=== PATIENT | female | born 1960 | race Caucasian/White ===

== ENCOUNTER 2016-06-30 07:25 | Emergency (ER) | payer OTHER ==
[~2016-06-30] VITALS: Wt 117.0 kg
[2016-06-30 07:40] VITALS: BP 134/69; PULSE 74; RESP 10; TEMP 98.4
--- NOTE | 2016-06-30 08:36 | RADRPT ---
PROCEDURE: US Pelvis. CLINICAL INDICATION: Pelvic pain TECHNIQUE: Multiple sonographic images of the pelvis were obtained utilizing a transabdominal and endovaginal technique. The images were reviewed on a PACS workstation. COMPARISON: None. FINDINGS: The uterus is visualized and measures 6.1 x 3.8 x 4.5 cm. The endometrial echo complex measures 8 mm thickness. No uterine masses are identified. The right ovary is not well visualized. The left ovary measures 2.4 x 1.4 x 1.2 cm. [address] is identified on the left ovary. The left ovary demonstrates normal vascularity. No adnexal masses or pelvic free fluid are noted. IMPRESSION: Thickened endometrium for a postmenopausal woman. Correlation for post menopausal bleeding is recom mended. Close continued follow-up to assess for persistence of this finding should be considered. Consultation with gynecology and potential correlation with endometrial biopsy can also be considere d. 7 mm simple cyst on the left ovary. Finding is abnormal in a postmenopausal woman. Continued follo w-up with repeat exam in 8 weeks to assess for persistence of this finding is recommended. Right ovary not well visualized. If characterization of this structure is needed repeat exam or CT/M RI is recommended. If further characterization of the organs of the pelvis is needed MRI should be considered. RPTAT: AA .Jacobo So MD, Date Time Electronically viewed and signed by .Jacobo So MD, MD on 06/30/2016 08:35 .P/
[2016-06-30 08:40] LABS: ADD UMIC YES; URINE BILIRUBIN (Dip) NEGATIVE (NEGATIVE); URINE BLOOD (Dip) 3+ (NEGATIVE); URINE COLOR LT. YELLOW (YELLOW); URINE GLUCOSE (Dip) >=1000 % (NEGATIVE); URINE KETONES (Dip) 40 (NEGATIVE); URINE LEUKOCYTE ESTERASE (Dip) NEGATIVE (NEGATIVE); URINE NITRITE (Dip) POSITIVE (NEGATIVE); URINE TOTAL PROTEIN (Dip) 2+ (NEGATIVE); URINE UROBILINOGEN (Dip) 0.2 E.U./dL (0.1-1.0)
[2016-06-30] MEDS ORDERED: CIPR500T4 PO (08:53)
[2016-06-30 08:56] LABS: BACTERIA,URINE MANY; SQUAMOUS EPITHELIAL CELL,UR FEW; URINE RBCS >50 /HPF (0)
--- NOTE | 2016-06-30 08:58 | ERD ---
ER Documentation Chief Complaint Date/Time DATE: 06/30/16 TIME: 0736 Chief Complaint right lower abd pain with scant vag bleed yesterday. no dysuria. nausea now HPI 55-year-old female presents to the emergency department complaining of right lower abdominal pain radiating from her right flank. Patient states she was in her usual state of health until yesterday which time she began having the spontaneous onset of this discomfort. It was associated with no dysuria fevers or chills. She had scant vaginal bleeding associated with this that she described as brown with no passage of clots or tissue. Patient reported no diarrhea nausea vomiting or anorexia. She reported that the discomfort was approximately 8/10 at its worst. However, she took some medication prior to arrival and states she needs no further pain medicine. ROS All systems reviewed and are negative except as per history of present illness. Medications Home Meds Active Scripts Ciprofloxacin Hcl* (Ciprofloxacin Hcl*) 500 Mg Tablet, 500 MG PO BID for 5 Days , TAB Prov:CLARK KEYS 06/30/16 PMhx/Soc History of Surgery: Yes (Gallbladder) Hx Alcohol Use: No Hx Substance Use: No Hx Tobacco Use: No Smoking Status: Never smoker FmHx Noncontributory for chief complaint Physical Exam Vitals Vital Signs Date Time Temp Pulse Resp B/P Pulse Ox O2 Delivery O2 Flow Rate FiO2 06/30/16 07:40 98.4 74 10 134/69 100 Room Air 06/30/16 07:28 98.6 74 20 142/81 98 Physical Exam GENERAL: The patient is well developed and appropriate for usual state of health in no apparent distress HEENT: Pupils equal, round, and reactive to light. EOMI. There is no scleral icterus. NECK: C-spine is soft and supple, there is no meningismus. There is no cervical lymphadenopathy. LUNGS: Clear to auscultation bilaterally. There are no rales, wheezes or rhonchi. HEART: Regular rate and rhythm, no murmurs, clicks, rubs or gallops. ABDOMEN: Soft, non-tender, non-distended. There are bowel sounds in all four quadrants. No rebound or guarding. No CVA tenderness EXTREMITIES: There is no peripheral cyanosis or edema. No focal swelling or erythema. NEURO: The patient moves all four extremities with 5/5 strength. Cranial nerves II - XII are intact. Normal gait. Alert and oriented SKIN: There is no apparent rash or petechiae. HEME/LYMPHATIC: There is no evidence of excessive bruising or lymphedema. PSYCHIATRIC: The patient does not appear anxious or depressed. Results 24 hrs Laboratory Tests Test 06/30/16 07:50 Urine Bilirubin NEGATIVE Urine Clarity CLEAR Urine Color LT. YELLOW Urine Glucose >=1000% Urine Hemoglobin 3+ Urine Ketones 40 Urine Leukocyte Esterase NEGATIVE Urine Microscopic RBC Pending Urine Microscopic WBC Pending Urine Nitrite POSITIVE Urine Specific Velarde 1.015 Urine Total Protein 2+ Urine Urobilinogen 0.2 E.U./dL Urine pH 5.0 Procedures/MDM Patient was taken to a room, seen and evaluated. Comfort measures were initiated. Diagnostic tests were ordered and reviewed. RADIOLOGY: reviewed with the radiologist REEVALUATION: Remained comfortable in the emergency department MEDICAL DECISION MAKIN-year-old postmenopausal female presents with pelvic and right lower quadrant pain associated with vaginal bleeding. Differential diagnosis entertained was broad and potential high acuity including gynecologic , GI and concerns. Patient does have a urinary tract infection but no signs of pyelonephritis or sepsis. I will treat her with an antibiotic. More concerning however is the vaginal bleeding at her age. Her ultrasound is abnormal with a small cyst on the left ovary but no signs of torsion. Patient also has a thickened endometrium which is abnormal as well. Patient clearly requires gynecologic follow-up for both the ovarian cyst as well as endometrial findings in this age group and she is been educated about this and states that she has an appointment this week with her matcher operator. Overall, she is clinically well and appropriate for outpatient care. Departure Diagnosis: Primary Impression: UTI (urinary tract infection) Additional Impressions: Vaginal bleeding problems Abnormal vaginal bleeding Condition: Stable Patient Instructions: Understanding Urinary Tract Infections (UTIs), Dysfunctional Uterine Bleeding Additional Instructions: Please see your matcher operator with a copy of your results this week. You may need further tests with your matcher operator. return for an fever or worsening pain CLARK KEYS Jun 30, 2016 08:58
== END 2016-06-30 09:18 | disposition home or self-care (01) ==
LOC: FTE 07:25
DX: N39.0 Urinary tract infection, site not specified (principal); N93.9 Abnormal uterine and vaginal bleeding, unspecified; R40.2142 Coma scale, eyes open, spontaneous, at arrival to emergency department; R40.2362 Coma scale, best motor response, obeys commands, at arrival to emergency department; R40.2252 Coma scale, best verbal response, oriented, at arrival to emergency department
CPT/HCPCS: 76830; 76856; 81001; Z7502; 81003

== ENCOUNTER 2016-11-26 16:09 | Emergency (ER) | payer OTHER ==
[~2016-11-26] VITALS: Ht 170.2 cm; Wt 120.0 kg
[~2016-11-26 16:09] MED LIST: CIPR500T4 PO
[2016-11-26 16:21] VITALS: Ht 170.2 cm; Wt 120.0 kg
--- NOTE | 2016-11-26 17:27 | RADRPT ---
PROCEDURE: Ultrasound of the right lower extremity venous system. CLINICAL INDICATION: Right lower extremity pain and swelling. TECHNIQUE: Mccord scale with and without compression, color doppler, spectral doppler of the venous system of the right lower extremity was performed. Venous augmentation maneuvers were utilized. COMPARISON: No prior studies are available for comparison. FINDINGS: RIGHT: Common femoral vein:Patent and compressible. Femoral vein:Patent and compressible. Popliteal vein:Patent and compressible. Visualized calf veins:Patent and compressible. Soft tissues:Normal IMPRESSION: 1. No evidence of deep vein thrombosis. RPTAT: AACC Physician Adriane Date Time Electronically viewed and signed by Physician Adriane on 11/26/2016 17:26 /
--- NOTE | 2016-11-26 18:51 | RADRPT ---
PROCEDURE: US Lower extremity arterial. CLINICAL INDICATION: Diminish peripheral pulses. Lower extremity discoloration. TECHNIQUE: Multiple sonographic images of the bilateral lower extremity arteries was obtained utili zing grayscale, color-flow, and doppler imaging. The images were reviewed on a PACS workstation. COMPARISON: None. FINDINGS: RIGHT LEG: Common femoral artery: 132 cm/s; triphasic waveforms Proximal superficial femoral artery: 96 cm/s; triphasic waveforms Mid superficial femoral artery: 109 cm/s; triphasic waveforms Distal superficial femoral artery: 79 cm/s; triphasic waveforms Popliteal artery: 112 cm/s; triphasic waveforms Posterior tibial artery: 138 cm/s; triphasic waveforms Dorsalis pedis artery: 35 cm/s; monophasic waveforms LEFT LEG: Common femoral artery: 99 cm/s; triphasic waveforms Proximal superficial femoral artery: 89 cm/s; triphasic waveforms Mid superficial femoral artery: 91 cm/s; triphasic waveforms Distal superficial femoral artery: 66 cm/s; triphasic waveforms Popliteal artery: 52 cm/s; triphasic waveforms Posterior tibial artery: 74 cm/s; triphasic waveforms Dorsalis pedis artery: 87 cm/s; triphasic waveforms Right CELSA: 1.2 Left CELSA: 1.16 IMPRESSION: 1. Abnormal dampened wave form in the right DPA, which may be related to intrinsic disease given ot herwise normal flow in the right lower extremity. 2. No evidence of hemodynamically significant stenosis. RPTAT: HLBP CELSA Value Interpretation Recommendation >1.4 Calcification/Vessel Hardening Refer to a Vascular Specialist 1.0-1.4 Normal None 0.9-1.0 Acceptable None 0.8-0.9 Some Arterial Disease Treat Risk Factors 0.5-0.8 Moderate Arterial Disease Refer to a Vascular Specialist Stenosis category Peak systolic velocity (cm/s) Velocity ratio Distal artery spectral waveform <20% <150 <1.5 Triphasic, normal PSV 20% to 49% 150-200 1.5-2.0 Triphasic, normal PSV 50% to 75% 200-300 2.0-4.0 Monophasic, reduced PSV >75% >300, EDV >40 >4.0 Damped monophasic, reduced PSV Occlusion No flow Damped monophasic, reduced PSV Interpretation of arterial duplex testing of lower-extremity arteries and interventions. Seminars in Vascular Surgery. 2013;26(2-3):95-104. .Gianluca Black MD, MD Date Time Electronically viewed and signed by .Gianluca Black MD, MD on 11/26/2016 18:51 .P/
--- NOTE | 2016-11-26 19:49 | ERD ---
ER Documentation Chief Complaint Date/Time DATE: 11/26/16 TIME: 19:37 Chief Complaint right foot/knee swelling since yesterday HPI This is a 56-year-old female presenting to the emergency department complaining of right lower leg extremity from her knee to her foot since a few months prior to being seen. Patient states that 10 days prior to being seen she had a full workup including an ultrasound which was unremarkable. Patient states that her [facility] clinic has placed her on Lasix. Patient denies any chest pain, shortness of breath, cough. Patient denies any pain she states that she has circulatory and neuropathy problems. Admits to recent traveling months ago. ROS All systems reviewed and are negative except as per history of present illness. Medications Home Meds Active Scripts Ciprofloxacin Hcl* (Ciprofloxacin Hcl*) 500 Mg Tablet, 500 MG PO BID for 5 Days , TAB Prov:CLARK KEYS 06/30/16 Allergies Allergies: Coded Allergies: No Known Allergy (Unverified , 06/30/16) PMhx/Soc History of Surgery: Yes (Gallbladder) Hx Alcohol Use: No Hx Substance Use: No Hx Tobacco Use: No Smoking Status: Never smoker Physical Exam Vitals Vital Signs Date Time Temp Pulse Resp B/P Pulse Ox O2 Delivery O2 Flow Rate FiO2 11/26/16 16:21 98.1 77 18 136/63 96 Physical Exam General: WD/WN, in no apparent distress, non-toxic appearing HENT: NC/AT Eyes: Conjunctiva normal Neck: Supple Pulm: Clear to auscultation, normal labored breathing; no wheezing/rales/ rhonchi heard CV: Good capillary refill GI: Non-distended, no guarding Back: No masses Ext: +2 pitting edema in the right lower extremity, weekend pedal pulses Neuro: Moves on all fours Skin: intact Psych: Normal mood Procedures/MDM This is a 56-year-old female presenting to the emergency department with right lower leg extremity swelling due to peripheral artery disease versus other. There was no evidence of deep vein thrombosis on venous ultrasound. Low suspicion for CHF. Arterial ultrasound was done in the ED. 10 days ago, patient had full workup which radiologist state: 1. Abnormal dampened wave form in the right DPA, which may be related to intrinsic disease given otherwise normal flow in the right lower extremity. 2. No evidence of hemodynamically significant stenosis. I have discussed with patient that she will need to see a vascular specialist. I discussed with her to follow-up with her primary care physician and get a referral to see a vascular specialist. Discussed return to the ER for any worsening sinus symptoms patient understands and agrees with plan Departure Diagnosis: Primary Impression: Right leg swelling Condition: Fair Patient Instructions: Diabetes and Peripheral Arterial Disease (PAD), Smoking Cessation Additional Instructions: FOLLOW UP WITH YOUR PRIMARY CARE PHYSICIAN TOMORROW.Return to this facility if you are not improving as expected. Return to this facility if you are not improving as expected. LIZZ GONZÁLES PA-C Nov 26, 2016 19:49
== END 2016-11-26 19:42 | disposition home or self-care (01) ==
LOC: FTE 16:09
DX: M79.89 Other specified soft tissue disorders (principal)
CPT/HCPCS: 93922; 93971; Z7502

== ENCOUNTER 2018-02-07 09:46 | Emergency (ER) | END 2018-02-07 10:21 | disposition home or self-care (01) ==

== ENCOUNTER 2018-03-01 10:44 | Inpatient (IN) | END 2018-03-05 18:00 | disposition home or self-care (01) | DRG 243 ==

== ENCOUNTER 2018-08-04 18:26 | Inpatient (IN) | payer OTHER ==
[~2018-08-04] VITALS: Ht 167.6 cm; Wt 119.0 kg
[~2018-08-04 18:26] MED LIST changes: +ASPI-903 PO; +ATOR40TA68 PO; +BENA20TA4 PO; +CARV12.579 PO; -CIPR500T4 PO; +FURO20TA3 PO; +Insulin Glargine SC; +LANT3I SC; +MECL-77 PO; +MTF1000T PO; +NOVO3I SC; +OMEP20CA16 PO
--- NOTE | 2018-08-04 22:22 | ERD ---
ER Documentation Chief Complaint Chief Complaint bleeding/ pus drainage at wound site left leg HPI The patient is a 58-year-old female, presenting to the ER because of foul smell, purulent discharge from the left leg wound for the last 4 days, was seen at [facility] 4 days ago and treated with Keflex and Bactrim without response, it is getting worse. Has fever, chills, neck pain, chest pain, dyspnea, abdominal pain, vomiting, dizzy, diarrhea. She does not smoke nor drink Past medical history: CAD, hypertension, diabetes mellitus, dyslipidemia, history of left pleural effusion Past surgical history: Pacemaker, CABG in May 02, 2018 ROS All systems reviewed and are negative except as per history of present illness. Medications Home Meds Reported Medications Insulin Glargine,Hum.rec.anlog (Basaglar Kwikpen U-100) 100 Unit/1 Ml Insuln.pen, 30 UNIT SC BID, EA 08/05/18 Furosemide* (Furosemide*) 40 Mg/5 Ml Solution, 40 MG PO DAILY, #150 ML 08/05/18 Atorvastatin* (Atorvastatin*) 80 Mg Tablet, 80 MG PO QHS, #30 TAB 08/05/18 Aspirin* (Aspirin* Chew) 81 Mg Tab.chew, 81 MG PO DAILY, TAB.CHEW 03/01/18 Discontinued Reported Medications Sulfamethoxazole/Trimethoprim* (Bactrim Ds* Tablet) 1 Each Tablet, 1 TAB PO DAILY, TAB 08/05/18 Cephalexin* (Cephalexin*) 500 Mg Capsule, 500 MG PO Q6, #28 CAP 08/05/18 Omeprazole* (Omeprazole*) 20 Mg Capsule.dr, 20 MG PO AC BREAKFAST, #30 CAP 03/01/18 Furosemide* (Furosemide*) 20 Mg Tablet, 20 MG PO DAILY, #60 TAB 03/01/18 Benazepril Hcl* (Benazepril Hcl*) 20 Mg Tablet, 20 MG PO DAILY, #30 TAB 03/01/18 Metformin* (Glucophage*) 1,000 Mg Tablet, 1000 MG PO BID, #60 TAB 03/01/18 Discontinued Scripts Meclizine Hcl* (Meclizine Hcl*) 25 Mg Tablet, 25 MG PO Q8H PRN for DIZZINESS, #21 TAB Prov:RIOS HEATH 03/05/18 Insulin Glargine* (Lantus*) 100 Unit/Ml Soln, 26 UNIT SC DAILY, #8 VIAL 1 Refill Prov:RIOS HEATH 03/05/18 [Insulin Glargine] 100 UNITS/ML SOLN No Conflict Check, 26 UNITS SC DAILY@0800, #8 VIAL 1 Refill Prov:RIOS HEATH 03/05/18 Insulin Aspart* (Novolog Insulin Pen*) 100 Unit/Ml Soln, 12 UNIT SC WITH MEALS for 30 Days, #11 VIAL 1 Refill Prov:RIOS HEATH. 03/05/18 Carvedilol* (Carvedilol*) 12.5 Mg Tablet, 12.5 MG PO BID, #60 TAB 2 Refills Prov:RIOS HEATH 03/05/18 Atorvastatin* (Atorvastatin*) 40 Mg Tablet, 40 MG PO HS, #30 TAB 2 Refills Prov:RIOS HEATH. 03/05/18 Allergies Allergies: Coded Allergies: No Known Allergy (Unverified , 08/05/18) PMhx/Soc History of Surgery: No Anesthesia Reaction: No Hx Neurological Disorder: No Hx Respiratory Disorders: No Hx Cardiac Disorders: No Hx Psychiatric Problems: No Hx Miscellaneous Medical Probl: Yes (OBESITY) Hx Alcohol Use: Yes (ONCE a while ) Hx Substance Use: No Hx Tobacco Use: Yes (5-7 a day ) Physical Exam Vitals Vital Signs Date Temp Pulse Resp B/P (MAP) Pulse Ox O2 O2 Flow FiO2 Time Delivery Rate 08/05/18 97.8 80 23 146/80 96 Room Air 05:51 (102) 08/05/18 92 26 123/80 96 Nasal 02:00 (94) Cannula 08/05/18 83 22 105/54 91 Nasal 2.0 01:00 (71) Cannula 08/04/18 75 18 95 21 23:30 08/04/18 78 19 108/56 95 Room Air 22:00 (73) 08/04/18 74 15 108/60 94 Room Air 21:58 (76) 08/04/18 98.4 74 19 129/63 91 18:46 (85) Physical Exam Const: No acute distress. Head: Atraumatic. Eyes: Normal Conjunctiva. ENT: Normal External Ears, Nose and Mouth. Neck: Full range of motion. No meningismus. Resp: decreased breath sound at left lung base, mild bilateral expiratory wheezes Cardio: Regular rate and rhythm. Abd: Soft, non distended, normal bowel sounds, non tender. Skin: No petechiae or rashes. Back: No midline or flank tenderness. Ext: Left Leg with open wound with purulent and foul-smelling discharge, mild calf tenderness Neur: Awake and alert. No focal deficit Psych: Normal Mood and Affect. Result Diagram: 08/04/18225808/04/182258 Results 24 hrs Laboratory Tests Test 08/04/18 22:59 08/04/18 23:03 08/05/18 03:37 White Blood Count 8.2 10^3/ul Red Blood Count 4.29 10^6/ul Hemoglobin 11.0 g/dl Hematocrit 35.9 % Mean Corpuscular Volume 83.7 fl Mean Corpuscular Hemoglobin 25.6 pg Mean Corpuscular 30.6 g/dl Hemoglobin Concent Red Cell Distribution Width 14.6 % Platelet Count 254 10^3/UL Mean Platelet Volume 9.9 fl Immature Granulocytes % 0.200 % Neutrophils % 69.8 % Lymphocytes % 20.2 % Monocytes % 7.0 % Eosinophils % 2.2 % Basophils % 0.6 % Nucleated Red Blood Cells % 0.0 /100WBC Immature Granulocytes # 0.020 10^3/ul Neutrophils # 5.7 10^3/ul Lymphocytes # 1.7 10^3/ul Monocytes # 0.6 10^3/ul Eosinophils # 0.2 10^3/ul Basophils # 0.1 10^3/ul Nucleated Red Blood Cells # 0.0 10^3/ul Prothrombin Time 13.2 Sec Prothrombin Time Ratio 1.0 INR International Normalized Ratio 0.99 Activated Partial Thromboplast 32.3 Sec Time Sodium Level 142 mmol/L Potassium Level 4.5 mmol/L Chloride Level 99 mmol/L Carbon Dioxide Level 31 mmol/L Anion Gap 12 Blood Urea Nitrogen 23 mg/dl Creatinine 0.81 mg/dl Est Glomerular Filtrat Rate mL/min > 60 mL/min Glucose Level 196 mg/dl Calcium Level 9.4 mg/dl Total Bilirubin 0.2 mg/dl Direct Bilirubin 0.00 mg/dl Indirect Bilirubin 0.2 mg/dl Aspartate Amino Transf (AST/SGOT) 24 IU/L Alanine 30 IU/L Aminotransferase (ALT/SGPT) Alkaline Phosphatase 111 IU/L Troponin I < 0.012 ng/ml Total Protein 7.6 g/dl Albumin 4.1 g/dl Globulin 3.50 g/dl Albumin/Globulin Ratio 1.17 POC Venous Lactate 0.9 mmol/L Lactic Acid Level 0.9 mmol/L Current Medications Medications Dose Sig/Shelley Start Time Status Last (Trade) Ordered Route PRN Stop Time Admin Dose Reason Admin Vancomycin 250 ml @ ONCE ONCE 08/04/18 DC 08/05/18 HCl 125 mls/hr IVPB 23:30 01:47 08/05/18 01:29 Piperacillin 100 ml @ ONCE ONCE 08/04/18 DC 08/05/18 Sod/ 200 mls/hr IVPB 23:30 00:40 Tazobactam 08/04/18 23:59 Sod 1.25 mg ONCE ONCE 08/04/18 DC 08/04/18 Levalbuterol HHN 23:30 23:30 (Xopenex 08/04/18 23:31 Neb) Ipratropium 0.5 mg ONCE ONCE 08/04/18 DC 08/04/18 [place] HHN 23:30 23:30 (Atrovent 08/04/18 23:31 0.02% (Neb)) IV Flush 3 ml PER 08/05/18 (NS 3 ml) PROTOCOL IV 03:00 Ondansetron 4 mg Q6H PRN 08/05/18 HCl (Zofran PO 03:00 Tab) NAUSEA/VOMITI NG 650 mg Q6H PRN 08/05/18 Acetaminophen PO .PAIN 1-3 03:00 (Tylenol OR TEMP Tab) 1 tab Q6H PRN 08/05/18 Acetaminophen PO .MOD PAIN 03:00 / 4-6 Hydrocodone Bitart ([place] (5/325)) Docusate 100 mg Q12H PRN 08/05/18 Sodium PO 03:00 (Colace) .CONSTIPATION Magnesium 30 ml DAILY PRN 08/05/18 Hydroxide PO 03:00 (Milk Of Mag) .CONSTIPATION Bisacodyl 5 mg DAILY PRN 08/05/18 (Dulcolax) PO 03:00 .CONSTIPATION Zolpidem 5 mg QHS PRN 08/05/18 Tartrate PO .INSOMNIA 03:00 (Ambien) Famotidine 20 mg Q12 PO 08/05/18 (Pepcid) 09:00 Enoxaparin 40 mg DAILY SC 08/05/18 Sodium 09:00 (Lovenox) Vancomycin VANCOMYCIN PER 08/05/18 HCl (Vanco PER PHARMACY PROTOCOL XX 03:00 Iv Per Pharmacy) Piperacillin 100 ml @ ONCE ONCE 08/05/18 DC 08/05/18 Sod/ 200 mls/hr IVPB 03:00 04:19 Tazobactam 08/05/18 03:29 Sod Aspirin 81 mg DAILY PO 08/05/18 (Aspirin) 09:00 80 mg QHS PO 08/05/18 Atorvastatin 21:00 Calcium (Lipitor) Furosemide 40 mg DAILY PO 08/05/18 DC (Lasix Liq 09:00 (Nicu)) 08/05/18 09:00 Insulin 30 unit BID SC 08/05/18 Cancel Glargine 09:00 (Lantus) Furosemide 40 mg DAILY@0600 08/05/18 (Lasix) PO 06:00 Vancomycin 250 ml @ Q12H IVPB 08/05/18 HCl 1.5 83.333 mls/ 10:00 gm/Sodium hr Chloride Insulin 30 units BID SC 08/05/18 Glargine 09:00 (Lantus) 1 ea NOTE XX 08/05/18 Miscellaneous 03:30 Information Glucose 15 gm Q15M PRN 08/05/18 (Glutose) PO DECREASED 03:30 GLUCOSE Glucose 22.5 gm Q15M PRN 08/05/18 (Glutose) PO DECREASED 03:30 GLUCOSE Dextrose 25 ml Q15M PRN 08/05/18 (D50w IV DECREASED 03:30 Syringe) GLUCOSE Dextrose 50 ml Q15M PRN 08/05/18 (D50w IV DECREASED 03:30 Syringe) GLUCOSE Glucagon 1 mg Q15M PRN 08/05/18 (Glucagen) IM DECREASED 03:30 GLUCOSE Glucose 15 gm Q15M PRN 08/05/18 (Glutose) BUCCAL 03:30 DECREASED GLUCOSE Nicotine 1 patch ONCE ONCE 08/05/18 DC (Nicoderm 14 TRANSDERM 04:00 Mg/ 24hr) 08/05/18 04:01 Procedures/[place] [id number] Radiology Main Line: [phone] DIAGNOSTIC IMAGING REPORT Patient: KYLEIGH SWIFT : 1960 Age: 58 Sex: F MR #: [id number] DOS: 08/04/182309 Ordering MD: KARSON VALENTIN MD Location: E/R Room/Bed: PROCEDURE: XR Chest. CLINICAL INDICATION: Sepsis. TECHNIQUE: AP view of the chest was obtained. COMPARISON: 03/04/2018 FINDINGS: There is a dual lead left-sided pacemaker in place with leads in the region of the right atrium right ventricle. There are postoperative changes from prior sternotomy. There is interval development of a large left-sided pleural effusion occupying 50% of the left hemithorax. There is associated compressive atelectasis. The right lung is normally aerated. The osseous structures and soft tissues unremarkable. No signs of pneumothorax is seen. IMPRESSION: 1. Moderate left-sided pleural effusion occupying 50% of the left hemithorax. 2. Pacemaker in place. RPTAT: HGAS .Davey Jay MD, MD Date Time Electronically viewed and signed by .Davey Jay MD, MD on 08/05/2018 00:45 .S/ CC: KARSON VALENTIN MD [phone] [place] [id number] Radiology Main Line: [phone] DIAGNOSTIC IMAGING REPORT Patient: KYLEIGH SWIFT : 1960 Age: 58 Sex: F MR #: [id number] DOS: 08/04/182309 Ordering MD: KARSON VALENTIN MD Location: E/R Room/Bed: PROCEDURE: Left Lower extremity Doppler US. CLINICAL INDICATION: Left lower extremity swelling. TECHNIQUE: Multiple sonographic images of the left lower extremity were obtained with and without Doppler interrogation. The images were reviewed on a PACS workstation. COMPARISON: No prior studies are available for comparison. FINDINGS: The examination was limited due to patient body habitus and edema in the lower extremity. The distal common femoral, superficial femoral and visualized portions of the popliteal vein are normal in appearance with normal response to augmentation. No evidence of DVT. The left posterior tibial veins or not well identified. No evidence of thrombus. There is moderate soft tissue swelling in the left lower extremity. There is no evidence of Luna's cyst. IMPRESSION: 1. Limited evaluation due to patient body habitus and left lower extremity edema. 2. Otherwise, normal left lower extremity Doppler ultrasound. No evidence of DVT. RPTAT: HGAS .Davey Jay MD, MD Date Time Electronically viewed and signed by .Davey Jay MD, MD on 08/05/2018 00:53 .S/ CC: KARSON VALENTIN MD [phone] EKG: Read by emergency physician Rate/Rhythm: Normal Sinus Rhythm 75 beats/min QRS, ST, T-waves: No ST elevation, no T inversion pvc, lae, inferior q's Impression: abnormal EKG MEDICAL MAKING DECISION: The patient is a 58-year-old female, presenting with acute left leg cellulitis, acute recurrent left pleural effusion, was treated with vancomycin and Zosyn IV for cellulitis, Xopenex and Atrovent for wheezing with good response. The differential diagnoses considered include but are not limited to cellulitis, abscess, DVT, pneumonia, empyema, malignancy Departure Diagnosis: Primary Impression: Cellulitis Additional Impressions: Pleural effusion, left Anemia Condition: Stable Comments I discussed the findings with the patient. I discussed the patient with dr leon at 2:55a , who was made aware of the lab, the treatment, the patient condition. The patient is admitted to tel Disclaimer: Inadvertent spelling and grammatical errors are likely due to EHR/dictation software use and do not reflect on the overall quality of patient care. Also, please note that the electronic time recorded on this note does not necessarily reflect the actual time of the patient encounter. KARSON VALENTIN MD Aug 04, 2018 22:22
[2018-08-04] MEDS ORDERED: PIPER-TAZO 3.375 GM IV (PMX) 100 ML IVPB ONE (23:30)
[2018-08-04] MEDS ORDERED: IPRATROPIUM (NEB) 0.5 MG/2.5 ML AMP HHN ONE (23:30)
[2018-08-04] MEDS ORDERED: LEVALBUTEROL (NEB) 1.25 MG/0.5 ML AMP HHN ONE (23:30)
[2018-08-04] MEDS ORDERED: VANCOMYCIN 1 GM (PMX) 250 ML IVPB ONE (23:30)
[2018-08-05] VITALS (11 sets, daily range): BP systolic 97–145; BP diastolic 60–72; PULSE 58–83; RESP 16–22; Ht 167.6 cm; Wt 119.0 kg
[2018-08-05] MEDS ORDERED: CEPH500C PO (02:03)
[2018-08-05] MEDS ORDERED: FURO40SO PO ×2 (02:03→10:18)
[2018-08-05] MEDS ORDERED: ATOR-2 PO (02:03)
[2018-08-05] MEDS ORDERED: INSU100I33 SC (02:03)
[2018-08-05] MEDS ORDERED: SULF1TAB31 PO (02:04)
[2018-08-05] MEDS ORDERED: NACL 0.9% 3 ML SYG IV SCH (03:00)
[2018-08-05] MEDS ORDERED: ONDANSETRON 4 MG TAB PO PRN (03:00)
[2018-08-05] MEDS ORDERED: ZOLPIDEM 5 MG TAB PO PRN (03:00)
[2018-08-05] MEDS ORDERED: MAGNESIUM HYDROXIDE 30ML CUP PO PRN (03:00)
[2018-08-05] MEDS ORDERED: VANCOMYCIN IV PER PHARMACY XX SCH (03:00)
[2018-08-05] MEDS ORDERED: BISACODYL (EC) 5 MG TAB PO PRN (03:00)
[2018-08-05] MEDS ORDERED: PIPER-TAZO 3.375 GM IV (PMX) 100 ML IVPB ONE (03:00)
[2018-08-05] MEDS ORDERED: DOCUSATE SODIUM 100 MG CAP PO PRN (03:00)
[2018-08-05] MEDS ORDERED: ACETAMINOPHEN 325 MG TAB PO PRN (03:00)
[2018-08-05] MEDS ORDERED: HYDROCODONE/APAP (5/325) TAB PO PRN (03:00)
[2018-08-05] MEDS ORDERED: GLUCOSE GEL 15 GRAM TUBE BUCCAL PRN (03:30)
[2018-08-05] MEDS ORDERED: GLUCAGON 1 MG INJ IM PRN (03:30)
[2018-08-05] MEDS ORDERED: DEXTROSE 50% 50 ML SYRINGE IV PRN ×2 (03:30)
[2018-08-05] MEDS ORDERED: GLUCOSE GEL 15 GRAM TUBE PO PRN ×2 (03:30)
[2018-08-05] MEDS ORDERED: NICOTINE (14 MG/24 HR) PATCH TRANSDERM ONE (04:00)
[2018-08-05] MEDS ORDERED: FUROSEMIDE 40 MG TAB PO SCH (06:00)
[2018-08-05] MEDS ORDERED: NICOTINE (14 MG/24 HR) PATCH TRANSDERM SCH (09:00)
[2018-08-05] MEDS ORDERED: INSULIN GLARGINE [LANTus] (100 UNITS/ML) SYG SC SCH (09:00)
[2018-08-05] MEDS ORDERED: ASPIRIN 81 MG TAB PO SCH (09:00)
[2018-08-05] MEDS ORDERED: ENOXAPARIN 40 MG/0.4 ML SYG SC SCH (09:00)
[2018-08-05] MEDS ORDERED: FAMOTIDINE 20 MG TAB PO SCH (09:00)
[2018-08-05] MEDS ORDERED: INSULIN GLARGINE [LANtus] 3 ML PEN SC SCH (09:00)
[2018-08-05] MEDS ORDERED: FUROSEMIDE (8 MG/ML PO SYG) PO SCH (09:00)
[2018-08-05] MEDS ORDERED: VANCOMYCIN HCL 1.5 GM in SOD CHLORIDE 0.9% 250 ML IVPB SCH (10:00)
[2018-08-05] MEDS ORDERED: VANC1.5P12 IV (10:18)
--- NOTE | 2018-08-05 10:19 | PDOCDIS ---
Discharge Instructions CONDITION [id number] Patient Condition: [id number] Good HOME CARE INSTRUCTIONS: [id number] Diet Instructions: [id number] Activity Restrictions: [id number] No Restrictions FOLLOW UP/APPOINTMENTS Follow-up Plan pcp 1 week BLAINE NOLAND MD Aug 05, 2018 10:19
[2018-08-05] MEDS ORDERED: FURO40TA4 PO (10:21)
[2018-08-05] MEDS ORDERED: POTA20TA15 PO (10:23)
[2018-08-05] MEDS ORDERED: LIDOCAINE 1% (MPF) 5 ML VIAL SC ONE ×2 (10:30)
--- NOTE | 2018-08-05 11:55 | HP ---
DATE OF ADMISSION: 08/05/2018 CHIEF COMPLAINT: Left leg infection. HISTORY OF PRESENT ILLNESS: A 58-year-old moderately obese female status post CABG on 05/02/2018 in [place], presented to emergency room with complaint of left thigh infection with purulent discharge which was foul-smelling. The patient was seen at [facility] emergency room 4 days prior to admiss ion and prescribed Keflex and Bactrim. She denies any fevers or chills, nausea or vomiting. She den ies any chest pain. The patient noted that after she received oral antibiotics there was a purulent discharge from the wound. This is the site of the vein harvest during CABG on 05/02/2018. Initial e valuation revealed no leukocytosis. The patient was started on IV antibiotics. A chest x-ray showed moderate left-sided pleural effusion. PAST MEDICAL HISTORY: 1. Hypertension. 2. Coronary artery disease. 3. Hyperlipidemia. 4. Type 2 diabetes mellitus. 5. Moderate obesity. PAST SURGICAL HISTORY: Status post coronary artery bypass graft on 05/02/2018. MEDICATIONS PRIOR TO ADMISSION: 1. Lipitor 80 mg p.o. at bedtime. 2. Aspirin 81 mg p.o. daily. 3. Lasix 40 mg p.o. daily. 4. Glargine insulin 30 units b.i.d. SOCIAL HISTORY: The patient denies tobacco or alcohol use. PHYSICAL EXAMINATION: GENERAL: Well-developed, well-nourished female who is in no apparent distress. VITAL SIGNS: Stable. She is afebrile. HEENT: Extraocular muscles intact. Pupils equal and reactive to light bilaterally. Sclerae are ani cteric. Oropharynx is clear and moist. NECK: Supple, no JVD, no carotid bruits. LUNGS: Decreased breath sounds on the left side half-way up. CARDIAC: Regular rate and rhythm. No murmurs, rubs or gallops. ABDOMEN: Soft, obese, nontender, nondistended, normoactive bowel sounds. EXTREMITIES: Left medial thigh with wound surrounded by erythema and covered with dressing. There i s no lymphangitic streak. The patient has 3+ bilateral pedal edema. NEUROLOGIC: Nonfocal. LABORATORY DATA: Basic metabolic panel is normal. White blood cell count 8.2, hemoglobin 11, platelet count is 254,000. ASSESSMENT: A 58-year-old female with: 1. Left thigh cellulitis at the site of vein harvest. 2. Status post coronary artery bypass graft in [place] on 05/02/2018. 3. Hypertension. 4. Hyperlipidemia. 5. Type 2 diabetes mellitus. 6. Moderate obesity. PLAN: 1. Place in Med/Surg observation, continue IV antibiotics, place a PICC line. 2. Proceed with CT-guided thoracentesis. 3. Discharge planning with 10 days of IV vancomycin. Dictated By: BLAINE NOLAND MD SK/NTS Conf#: [id number] DID#: [id number] CC: COOPER PAVON MD;*EndCC*
[2018-08-05] MEDS ORDERED: ATORVASTATIN 80 MG TAB PO SCH (21:00)
== END 2018-08-05 18:45 | disposition home health service (06) | DRG 603 ==
LOC: E/R 18:26 → TEL 08-05 02:56
PROVIDERS: ADMIT Internal Medicine; ATTEND Internal Medicine
PROC: 05HY33Z Insertion of Infusion Device into Upper Vein, Percutaneous Approach (ICD-10-PCS; principal; 2018-08-05)
DX: L03.116 Cellulitis of left lower limb (principal); Z68.41 Body mass index [BMI] 40.0-44.9, adult; I25.10 Atherosclerotic heart disease of native coronary artery without angina pectoris; Z95.1 Presence of aortocoronary bypass graft; E78.5 Hyperlipidemia, unspecified; E11.9 Type 2 diabetes mellitus without complications; E66.9 Obesity, unspecified; Z95.0 Presence of cardiac pacemaker; Z79.82 Long term (current) use of aspirin; Z79.4 Long term (current) use of insulin
CPT/HCPCS: 36415; 36569; 71045; 76937; 76942; 80053; 82962; 83605; 84484; 85025; 85610; 85730; 87070; 87102; 87116; 88104; 88305; 93005; 93971; 94664; 96374; 96375; 96376; C1769; J1650; J1815; J2543; J3370; J7050

== ENCOUNTER 2018-08-27 19:31 | Inpatient (IN) | payer OTHER ==
[~2018-08-27] VITALS: Ht 167.6 cm; Wt 124.0 kg
[~2018-08-27 19:31] MED LIST changes: +ATOR-2 PO; -ATOR40TA68 PO; -BENA20TA4 PO; -CARV12.579 PO; -FURO20TA3 PO; +FURO40TA4 PO; +INSU100I33 SC; -Insulin Glargine SC; -LANT3I SC; -MECL-77 PO; -MTF1000T PO; -NOVO3I SC; -OMEP20CA16 PO; +POTA20TA15 PO; +VANC1.5P12 IV
--- NOTE | 2018-08-27 22:51 | ERD ---
ER Documentation Chief Complaint Chief Complaint SOB x1 day, no CP. hx of thoracentesis/CABG HPI 58-year-old female with a history of CAD status post CABG in April 2018 presenting with shortness of breath since yesterday. She states that she has had 4 recurrent left-sided pleural effusion that required drainage in the past. The last one was done about 3 weeks ago during her admission to the hospital for cellulitis. She had her surgery done in [place] and does not have a cardiothoracic surgeon to follow-up with. She has followed up with her rotary filter operator who ordered an echocardiogram that was done today. She is not anika re of the results. Otherwise she is denying any chest pain, fever, chills. She has worsening shortness of breath with exertion but also has symptoms at rest. She also complains of bilateral lower extremity edema that seems to be getting worse. She takes Lasix twice daily. Urination has not changed. ROS All systems reviewed and are negative except as per history of present illness. Medications Home Meds Active Scripts Potassium Chloride* (K-Dur*) 20 Meq Tab.prt.sr, 20 MEQ PO DAILY for 30 Days, TAB.SA Prov:BLAINE NOLAND MD 08/05/18 Furosemide* (Furosemide*) 40 Mg Tablet, 40 MG PO BID for 30 Days, #60 TAB Prov:BLAINE NOLAND MD 08/05/18 Vancomycin HCl in Dextrose 5 % (Vancomycin 1.5 Gram/250 ml-D5w) 1.5 Gm/250 Ml Plast..bag, 1.5 GM IV BID for 7 Days Prov:BLAINE NOLAND MD 08/05/18 Reported Medications Insulin Glargine,Hum.rec.anlog (Basaglar Kwikpen U-100) 100 Unit/1 Ml In suln.pen, 30 UNIT SC BID, EA 08/05/18 Atorvastatin* (Atorvastatin*) 80 Mg Tablet, 80 MG PO QHS, #30 TAB 08/05/18 Aspirin* (Aspirin* Chew) 81 Mg Tab.chew, 81 MG PO DAILY, TAB.CHEW 03/01/18 Allergies Allergies: Coded Allergies: No Known Allergy (Unverified , 08/27/18) PMhx/Soc History of Surgery: Yes (CABG April 2018, AICD) Anesthesia Reaction: No Hx Neurological Disorder: No Hx Respiratory Disorders: No Hx Cardiac Disorders: Yes (CAD) Hx Psychiatric Problems: No Hx Miscellaneous Medical Probl: Yes (Diabetes) Hx Alcohol Use: No Hx Substance Use: No Hx Tobacco Use: No Smoking Status: Never smoker FmHx Family History: No diabetes Physical Exam Vitals Vital Signs Date Temp Pulse Resp B/P (MAP) Pulse Ox O2 O2 Flow FiO2 Time Delivery Rate 08/27/18 76 16 139/81 96 Nasal 2.0 23:00 (100) Cannula 08/27/18 78 19 163/94 98 Nasal 2.0 21:44 (117) Cannula 08/27/18 Nasal 2 20:33 Cannula 08/27/18 Nasal 2.0 20:30 Cannula 08/27/18 98.0 70 20 192/88 89 19:42 (122) Physical Exam Const: No acute distress Head: Atraumatic Eyes: Normal Conjunctiva ENT: Normal External Ears, Nose and Mouth. Neck: Full range of motion. No meningismus. Resp: Significantly diminished breath sounds in the left base and mid lung. Otherwise lung sounds normal. No wheezing. No tachypnea or retractions.. Cardio: Regular rate and rhythm, no murmurs. 2+ distal pulses Abd: Soft, non tender, non distended. Normal bowel sounds Skin: No petechiae or rashes Back: No midline or flank tenderness Ext: No cyanosis, 1+ bilateral lower extremity edema. No evidence of cellulitis. Right upper extremity PICC line in place Neur: Awake and alert Psych: Normal Mood and Affect Result Diagram: 08/27/18204408/27/182044 Results 24 hrs Laboratory Tests Test 08/27/18 20:45 White Blood Count 5.3 10^3/ul Red Blood Count 4.30 10^6/ul Hemoglobin 10.9 g/dl Hematocrit 35.5 % Mean Corpuscular Volume 82.6 fl Mean Corpuscular Hemoglobin 25.3 pg Mean Corpuscular Hemoglobin Concent 30.7 g/dl Red Cell Distribution Width 15.5 % Platelet Count 243 10^3/UL Mean Platelet Volume 9.2 fl Immature Granulocytes % 0.200 % Neutrophils % 60.6 % Lymphocytes % 24.1 % Monocytes % 10.3 % Eosinophils % 3.9 % Basophils % 0.9 % Nucleated Red Blood Cells % 0.0 /100WBC Immature Granulocytes # 0.010 10^3/ul Neutrophils # 3.2 10^3/ul Lymphocytes # 1.3 10^3/ul Monocytes # 0.6 10^3/ul Eosinophils # 0.2 10^3/ul Basophils # 0.1 10^3/ul Nucleated Red Blood Cells # 0.0 10^3/ul Sodium Level 141 mmol/L Potassium Level 3.9 mmol/L Chloride Level 101 mmol/L Carbon Dioxide Level 32 mmol/L Anion Gap 8 Blood Urea Nitrogen 11 mg/dl Creatinine 0.56 mg/dl Est Glomerular Filtrat Rate mL/min > 60 mL/min Glucose Level 216 mg/dl Calcium Level 9.9 mg/dl Troponin I < 0.012 ng/ml B-Type Natriuretic Peptide 1560 PG/ML Procedures/MDM EMERGENT LABS AND DIAGNOSTIC STUDIES: Lab Results above were reviewed and interpreted by me. CBC: Mild anemia, no evidence of infection BMP: No e/o clinically significant electrolyte abnormality severe acidosis, alkalosis, renal failure, diabetic ketoacidosis Troponin within normal limits, not indicative of cardiac ischemia BNP elevated 12-lead EKG was interpreted by Liane Ornelas MD: Demand pacemaker. Sinus Rhythm with ventricular rate of 77 beats per minute Normal axis Normal intervals No acute ST or T wave changes suggestive of acute ischemia or STEMI. Radiology Results as interpreted by Radiology below were reviewed by SMiguel Angel Ornelas MD: Chest x-ray: IMPRESSION: Interval increase in large left pleural effusion with associated atelectasis versus infiltrate. Increased right basilar atelectasis. Otherwise no change. Initial Nursing notes reviewed. Previous Medical Records requested via the Electronic Health Record. EMERGENCY DEPARTMENT COURSE / MEDICAL DECISION MAKING: Patient is presenting with shortness of breath and mild hypoxia on room air. Her oxygenation and symptoms improved with supplemental oxygen. Chest x-ray shows significant left pleural effusion that is recurrent for the patient. Patient will require admission for drainage. Otherwise I doubt acute heart failure, acute coronary syndrome, pulmonary embolism, or pneumonia. I feel the patient requires admission given her hypoxia and significant respiratory symptoms. She will need a thoracentesis. I also think she may need consult with a cardiothoracic surgeon to see if there is any other procedure that can be done to prevent any recurrent effusions. If not, I discussed with the patient that she needs to get a referral from her PCP and follow-up with a cardiothoracic surgeon in this area. At time of signout, I am still awaiting approval by her insurance for admission. Critical Care Time: 40 minutes Treatments/Evaluations: Close monitoring and treatment of unstable vital signs, cardiorespiratory, and neurologic status, while maintaining tight balance of fluid, respiratory, and cardiac interventions. This time includes discussing the case with the patient and the patients family. This time does not include all procedures stated elsewhere in this record. This time also includes reviewing old records, labs and radiological studies. This time includes examining and re- examining the patient. Additionally, this time also includes arranging care with admitting and consulting physicians. Departure Diagnosis: Primary Impression: Recurrent left pleural effusion Additional Impressions: History of coronary artery bypass graft Acute respiratory failure with hypoxia Condition: Serious YAMINI ORNELAS MD August 27, 2018 22:51
[2018-08-28] VITALS (7 sets, daily range): BP systolic 131–158; BP diastolic 65–76; PULSE 67–75; RESP 18–19; Ht 167.6 cm; Wt 124.0 kg
[2018-08-28] MEDS ORDERED: ONDANSETRON 4 MG INJ IV PRN (01:00)
[2018-08-28] MEDS ORDERED: ACETAMINOPHEN 325 MG TAB PO PRN (01:00)
[2018-08-28] MEDS ORDERED: GLUCOSE GEL 15 GRAM TUBE PO PRN ×2 (04:30)
[2018-08-28] MEDS ORDERED: DEXTROSE 50% 50 ML SYRINGE IV PRN ×2 (04:30)
[2018-08-28] MEDS ORDERED: GLUCOSE GEL 15 GRAM TUBE BUCCAL PRN (04:30)
[2018-08-28] MEDS ORDERED: GLUCAGON 1 MG INJ IM PRN (04:30)
[2018-08-28] MEDS ORDERED: INSULIN ASPART [NOVOLOG] 3 ML PEN SC SCH ×2 (05:00→08:00)
[2018-08-28] MEDS ORDERED: FUROSEMIDE 40 MG INJ IV SCH (06:00)
[2018-08-28] MEDS: INSULIN ASPART [NOVOLOG] 3 ML PEN SC SCH ×2 (08:00→12:04)
[2018-08-28] MEDS ORDERED: POTASSIUM CHLORIDE (SR) 20 MEQ TAB PO STA (08:33)
--- NOTE | 2018-08-28 08:36 | PDOCDIS ---
Discharge Instructions CONDITION [id number] Patient Condition: [id number] Good HOME CARE INSTRUCTIONS: [id number] Diet Instructions: [id number] Activity Restrictions: [id number] No Restrictions FOLLOW UP/APPOINTMENTS Follow-up Plan pcp 1 week Cardiology 1 week BLAINE NOLAND MD August 28, 2018 08:36
[2018-08-28] MEDS ORDERED: FLUCONAZOLE 200 MG TAB PO ONE (09:00)
[2018-08-28] MEDS ORDERED: BUMETANIDE 6 MG in DEXTROSE 5% 36 ML IV ONE (09:00)
[2018-08-28] MEDS ORDERED: LISINOPRIL 20 MG TAB PO SCH (09:00)
[2018-08-28] MEDS ORDERED: POTASSIUM CHLORIDE (SR) 20 MEQ TAB PO SCH (09:00)
--- NOTE | 2018-08-28 09:12 | HP ---
DATE OF ADMISSION: 08/28/2018 CHIEF COMPLAINT: Shortness of breath. HISTORY OF PRESENT ILLNESS: A 58-year-old female with coronary artery disease, hypertension, and typ e 2 diabetes mellitus, presented to emergency room with complaint of shortness of breath and dyspnea on exertion. The patient denies any chest pain. She underwent coronary artery bypass graft on 05/02 [place]. The patient had pleural effusion at that time. She was also recently discharged for a left lower extremity cellulitis, which was treated with IV vancomycin for 3 weeks. Initial evaluation revealed recurrent pleural effusion on the left side. PAST MEDICAL HISTORY: 1. Coronary artery disease. 2. Hypertension. 3. Type 2 diabetes mellitus. 4. Hyperlipidemia. 5. Moderate obesity. PAST SURGICAL HISTORY: Status post coronary artery bypass graft in April of 2018. MEDICATIONS PRIOR TO ADMISSION: 1. Lasix. 2. Potassium chloride. 3. Insulin. 4. Atorvastatin. 5. Aspirin. SOCIAL HISTORY: The patient lives at home. She denies tobacco or alcohol use. PHYSICAL EXAMINATION: GENERAL: Well-developed, well-nourished, obese female who is in no apparent distress. VITAL SIGNS: Stable. She is afebrile. HEENT: Extraocular muscles are intact. Pupils are equal and reactive to light bilaterally. Sclerae are anicteric. Oropharynx is clear and moist. NECK: Supple, no JVD, no carotid bruits. LUNGS: Decreased breath sound on the left side more than half way up. CARDIAC: Regular rate and rhythm. No murmurs, rubs or gallops. ABDOMEN: Soft, nontender, nondistended, normoactive bowel sounds. EXTREMITIES: 2+ edema. NEUROLOGICAL: Nonfocal. LABORATORY DATA: White blood cell count 5.3, hemoglobin 10.9, platelet count 243,000. Basic metabol ic panel is within normal limits. Troponin is less 0.012. BNP is elevated at 1560. ASSESSMENT: 1. A 58-year-old female with recurrent left-sided pleural effusions. 2. Volume overload. 3. Coronary artery disease. 4. Status post coronary artery bypass graft on 05/02/2018. 5. Hypertension. 6. Type 2 diabetes mellitus. 7. Moderate obesity. 8. Noncompliance with medical therapy. The patient was prescribed Lasix twice daily, and she has on ly been taking it once a day. PLAN: 1. Place in tele observation. 2. Bumex drip x6 hours. 3. Proceed with left-sided thoracentesis. 4. Resume home medications. 5. Discharge planning following Bumex drip and thoracentesis with followup as outpatient. Dictated By: BLAINE NOLAND MD SK/NTS Conf#: [id number] DID#: [id number] CC: BLAINE NOLAND MD;*EndCC*
[2018-08-28] MEDS ORDERED: LIDOCAINE 1% (MPF) 5 ML VIAL ONE ×2 (15:04→16:52)
[2018-08-28] MEDS ORDERED: ATORVASTATIN 80 MG TAB PO SCH (21:00)
--- NOTE | 2018-08-29 11:04 | DS ---
DATE OF ADMISSION: 08/28/2018 DATE OF DISCHARGE: 08/28/2018 DISCHARGE DIAGNOSES: 1. A 58-year-old female with recurrent left-sided pleural effusion. 2. Status post left-sided thoracentesis. 3. Volume overload. 4. Coronary artery disease. 5. Status post coronary artery bypass graft on 05/02/2018. 6. Hypertension. 7. Type 2 diabetes mellitus. 8. Moderate obesity. 9. Noncompliance with medical therapy. HOSPITAL COURSE: A 58-year-old female status post coronary artery bypass graft on 05/02/2018, presen on[place] to the emergency room with recurrent shortness of breath and dyspnea on exertion. The patient wa s found to have recurrent left-sided pleural effusion. She underwent repeat thoracentesis. 1,450 mL of fluid was removed from left pleural space. The patient also received 6 hours of IV Bumex drip. H er condition improved significantly following the procedure and the diuresis. Patient was advised to adhere to medical therapy and take Lasix twice daily as previously prescribed. The patient was only taking Lasix 1 time daily previously. She was discharged in stable condition. MEDICATIONS ON DISCHARGE: 1. Lipitor 80 mg p.o. at bedtime. 2. Aspirin 81 mg daily. 3. Lasix 40 mg b.i.d. 4. K-Dur 20 mEq daily. 5. Glargine insulin 30 units subq b.i.d., Follow up with PCP and cardiology as an outpatient. Dictated By: BLAINE FORBES/TIAGO Conf#: [id number] DID#: [id number]
== END 2018-08-28 18:04 | disposition home or self-care (01) | DRG 186 ==
LOC: E/R 19:31 → 6WM 08-28 00:53
PROVIDERS: ADMIT Internal Medicine; ATTEND Internal Medicine
PROC: 0W9B30Z Drainage of Left Pleural Cavity with Drainage Device, Percutaneous Approach (ICD-10-PCS; principal; 2018-08-28)
DX: J90 Pleural effusion, not elsewhere classified (principal); J96.01 Acute respiratory failure with hypoxia; Z68.41 Body mass index [BMI] 40.0-44.9, adult; E87.70 Fluid overload, unspecified; I25.10 Atherosclerotic heart disease of native coronary artery without angina pectoris; I10 Essential (primary) hypertension; E11.9 Type 2 diabetes mellitus without complications; E78.5 Hyperlipidemia, unspecified; E66.9 Obesity, unspecified; Z79.4 Long term (current) use of insulin; Z79.82 Long term (current) use of aspirin; Z91.14 Patient's other noncompliance with medication regimen; Z95.1 Presence of aortocoronary bypass graft; Z95.810 Presence of automatic (implantable) cardiac defibrillator
CPT/HCPCS: 36415; 71045; 76942; 80048; 82962; 83880; 84484; 85025; 85610; 85730; 93005; J1815; J1940

== ENCOUNTER 2018-10-27 10:57 | Emergency (ER) | payer OTHER ==
[~2018-10-27] VITALS: Wt 123.1 kg
[~2018-10-27 10:57] MED LIST changes: -VANC1.5P12 IV
[2018-10-27 12:04] VITALS: BP 126/58; PULSE 71; RESP 20
--- NOTE | 2018-10-27 12:13 | ERD ---
ER Documentation Chief Complaint Chief Complaint cabg 04/2018 w hx of drained pleural effusions x5 p cabg, sob x2 days HPI 58-year-old female presents the emergency department complaining of shortness of breath. Patient has a long-standing history of complicated chronic heart disease resulting in congestive heart failure. She has a history of a CABG many years ago and now valvular heart disease for which she is undergoing an extensive work-up. Despite the use of increasing Lasix at home, she continues to have increasing lower extremity edema and shortness of breath. She denies any chest pain or fevers. She has had pleural effusions in the past that required drainage and presents the emergency department today with her shortness of breath concerned about requiring a further drainage. ROS All systems reviewed and are negative except as per history of present illness. Medications Home Meds Active Scripts Potassium Chloride* (K-Dur*) 20 Meq Tab.prt.sr, 20 MEQ PO DAILY for 30 Days, TAB.SA Prov:BLAINE NOLAND MD 08/05/18 Furosemide* (Furosemide*) 40 Mg Tablet, 40 MG PO BID for 30 Days, #60 TAB Prov:BLAINE NOLAND MD 08/05/18 Reported Medications Insulin Glargine,Hum.rec.anlog (Basaglar Kwikpen U-100) 100 Unit/1 Ml Insuln.pen, 30 UNIT SC BID, EA 08/05/18 Atorvastatin* (Atorvastatin*) 80 Mg Tablet, 80 MG PO QHS, #30 TAB 08/05/18 Aspirin* (Aspirin* Chew) 81 Mg Tab.chew, 81 MG PO DAILY, TAB.CHEW 03/01/18 Allergies Allergies: Coded Allergies: No Known Allergy (Unverified , 08/27/18) PMhx/Soc History of Surgery: Yes (CABG, Cholecystectomy) Anesthesia Reaction: No Hx Neurological Disorder: No Hx Respiratory Disorders: Yes (Recurrent pleural effusions) Hx Cardiac Disorders: Yes (HTN, s/p cabg, s/p pacer) Hx Psychiatric Problems: Yes (Depression & Anxiety) Hx Miscellaneous Medical Probl: No Hx Alcohol Use: No Hx Substance Use: No Hx Tobacco Use: Yes Smoking Status: Current every day smoker FmHx Noncontributory for chief complaint Physical Exam Vitals Vital Signs Date Temp Pulse Resp B/P (MAP) Pulse Ox O2 O2 Flow FiO2 Time Delivery Rate 10/27/18 98.1 71 20 126/58 95 Room Air 12:04 (80) 10/27/18 98.1 68 20 142/65 93 11:11 (90) Physical Exam GENERAL: The patient is well developed and appropriate for usual state of health in no apparent distress HEENT: Pupils equal, round, and reactive to light. EOMI. There is no scleral icterus. NECK: C-spine is soft and supple, there is no meningismus. There is no cervical lymphadenopathy. LUNGS: Occasional crackle at the left base. No tachypnea or retractions. No wheezing. HEART: Regular rate and rhythm, no murmurs, clicks, rubs or gallops. ABDOMEN: Soft, non-tender, non-distended. There are bowel sounds in all four quadrants. No rebound or guarding. EXTREMITIES: 2+ edema in the lower extremities. No cyanosis or clubbing NEURO: The patient moves all four extremities with 5/5 strength. Cranial nerves II - XII are intact. Normal gait. Alert and oriented SKIN: There is no apparent rash or petechiae. HEME/LYMPHATIC: There is no evidence of excessive bruising or lymphedema. PSYCHIATRIC: The patient does not appear anxious or depressed. Procedures/MDM Patient was taken to a room, seen and evaluated. Comfort measures were initiated. Diagnostic tests were ordered and reviewed. 3 LEAD RHYTHM STRIP: Normal sinus rhythm without ectopy RADIOLOGY: Reviewed with the radiologist REEVALUATION: Chest x-ray was reviewed with the patient. She felt comfortable following up as an outpatient with increasing Lasix dose at home MEDICAL DECISION MAKIN-year-old female with known existing heart disease presents to the emergency department with what appears to be a slight exacerbation of her congestive heart failure, which is known to be chronic. Patient has no indications by history of this being acutely ischemic and she is known not to have ischemic disease at this current time. She has a good outpatient follow-up with her study director with an ongoing work-up for her valvular heart disease. She is comfortable taking outpatient medications at this time and does not wish to stay for IV medications and I feel that this is appropriate given the known history of her disease. Patient does seem appropriate for outpatient care at this time with instructions to increase her Lasix. Of note she also tells me that she has potassium at home that she takes with the Lasix. Departure Diagnosis: Primary Impression: Shortness of breath Additional Impression: Congestive heart failure Condition: Stable Patient Instructions: Heart Failure: Warning Signs of a Flare-Up, Heart Disease Education Additional Instructions: See your doctor for follow-up as discussed. Take a copy of your test results, if appropriate, to this follow-up visit. See your doctor or return here if your symptoms do not improve as expected. At any time, please return to the emergency department for any change or w orsening in her symptoms. CLARK KEYS Oct 27, 2018 12:13
== END 2018-10-27 12:11 | disposition home or self-care (01) ==
LOC: E/R 10:57
DX: I50.9 Heart failure, unspecified (principal); I11.0 Hypertensive heart disease with heart failure; F17.210 Nicotine dependence, cigarettes, uncomplicated; E11.9 Type 2 diabetes mellitus without complications; Z79.4 Long term (current) use of insulin; Z79.82 Long term (current) use of aspirin; Z95.0 Presence of cardiac pacemaker; Z95.1 Presence of aortocoronary bypass graft
CPT/HCPCS: 71045; Z7502

== ENCOUNTER 2018-12-24 06:08 | Emergency (ER) | payer OTHER ==
[~2018-12-24] VITALS: Ht 167.6 cm; Wt 113.0 kg
[~2018-12-24 06:08] MED LIST changes: +LOSA50TA14 ORAL; +METF100010 ORAL; +METO-335 ORAL; +OMEP20CA16 ORAL; +PARO-2 PO
[2018-12-24 06:09] VITALS: Ht 167.6 cm; Wt 113.0 kg
[2018-12-24] MEDS ORDERED: FUROSEMIDE 40 MG INJ IV ONE (07:00)
[2018-12-24 10:12] VITALS: BP 132/78; PULSE 89; RESP 19
== END 2018-12-24 10:12 | disposition home or self-care (01) ==
LOC: E/R 06:08
DX: I50.41 Acute combined systolic (congestive) and diastolic (congestive) heart failure (principal); J90 Pleural effusion, not elsewhere classified; E11.9 Type 2 diabetes mellitus without complications; I25.810 Atherosclerosis of coronary artery bypass graft(s) without angina pectoris; I11.0 Hypertensive heart disease with heart failure; Z79.4 Long term (current) use of insulin; Z79.82 Long term (current) use of aspirin; Z87.891 Personal history of nicotine dependence
CPT/HCPCS: 71045; 80053; 83690; 83880; 84484; 85025; 93005; 96374; J1940; Z7502